=== PATIENT | female | born 1970 | race Caucasian/White ===

== ENCOUNTER 2019-12-17 23:58 | Emergency (ER) | payer OTHER ==
[2019-12-18] MEDS ORDERED: ONDANSETRON HCL INJ/PF 4 MG/2 ML SDV IV ONE (01:19)
[2019-12-18] MEDS ORDERED: NORMAL SALINE 1000 ML 1,000 ML IV ONE (01:19)
--- NOTE | 2019-12-18 01:24 | ER Document Report ---
ED General - General Chief Complaint: Passed Out Prior to Arrival Stated Complaint: ETOH/ALTERED MENTAL STATUS Time Seen by Provider: 12/18/19 01:07 Notes: Patient is a 49-year-old female that comes to the emergency department for chief complaint of alcohol intoxication. She states that she barely ate anything today, drank some wine, and became much more intoxicated than she expected. Patient states she is staying at a nearby hotel, hotel staff found her slumped over and became concerned and called EMS. EMS brought to the emergency depa rtment with no interventions. Patient denies hitting her head, falling, she denies any pain symptoms, she denies vomiting, she denies any other complaints other than becoming more intoxicated than she planned. She denies recreational drugs. She does have a history of factor V Leiden and is on Plavix as result but she again insists that she had no fall, injury, and EMS did not report any fall or injury. TRAVEL OUTSIDE OF THE [place] IN LAST 30 DAYS: No - Related Data Allergies/Adverse Reactions: NSAIDS (Non-Steroidal Anti-Inflamma Allergy (Verified 12/18/19 00:17) Past Medical History - General Information source: Patient - Social History Smoking Status: Never Smoker Frequency of alcohol use: Social Drug Abuse: None Lives with: Alone Family History: Reviewed & Not Pertinent Patient has suicidal ideation: No Patient has homicidal ideation: No - Past Medical History Cardiac Medical History: Reports: Other - Factor V Leiden on Plavix - Immunizations Immunizations up to date: Yes Hx Diphtheria, Pertussis, Tetanus Vaccination: Yes Review of Systems - Review of Systems Constitutional: See HPI EENT: No symptoms reported Cardiovascular: No symptoms reported Respiratory: No symptoms reported Gastrointestinal: No symptoms reported Genitourinary: No symptoms reported Female Genitourinary: No symptoms reported Musculoskeletal: No symptoms reported Skin: No symptoms reported Hematologic/Lymphatic: No symptoms reported Neurological/Psychological: See HPI Physical Exam - Vital signs Vitals: Temp Pulse Resp BP Pulse Ox 98.6 F 86 16 118/72 100 12/18/19 00:22 12/18/19 00:22 12/18/19 00:22 12/18/19 00:22 12/18/19 00:22 - Notes Notes: GENERAL: Alert, friendly, slight slurring of words, expansive mood, appears somewhat intoxicated HEAD: Normocephalic, atraumatic. EYES: Pupils equal, round, and reactive to light. Extraocular movements intact. ENT: Oral mucosa moist, tongue midline. Oropharynx unremarkable. Airway patent. N LUNGS: Clear to auscultation bilaterally, no wheezes, rales, or rhonchi. No respiratory distress. No signs of trauma. HEART: Regular rate and rhythm. No murmur ABDOMEN: Soft, non-tender. Non-distended. No signs of trauma. GENITOURINARY: Deferred EXTREMITIES: Moves all 4 extremities spontaneously. No edema, normal radial and dorsalis pedis pulses bilaterally. No cyanosis. BACK: no cervical, thoracic, lumbar midline tenderness. No saddle anesthesia, normal distal neurovascular exam. Moves all extremities in full range of motion. NEUROLOGICAL: Alert and oriented to person and place but not to all events. Occasional mild slurring of speech. Cranial nerves II through XII grossly intact. PSYCH: Friendly and expansive mood SKIN: Warm, dry, normal turgor. No rashes or lesions noted. Course - Re-evaluation Re-evalutation: Patient does appear intoxicated but is cooperative, friendly, and in no distress. Her evaluation is otherwise unremarkable. Her vital signs are unremarkable. There is no sign of trauma and no reported trauma. Patient will be provided with IV fluids, Zofran, she will be allowed to sleep and she will be monitored. After she is clinically improved and sober patient will be discharge d back to her hotel. Patient states understanding and agreement with plan. 12/18/19 On evaluation patient sleeping, has no respiratory depression, unremarkable. She will be allowed to sleep and will be discharged in the morning. Patient awake, alert, ambulates without difficulty, is not slurring her words, has no current symptoms, no current complaints. Patient is clinically sober. Patient will be obtaining a cab to go back to her hotel (this will be called for her). Patient discharged with return precautions, she states understanding and agreement. - Vital Signs Vital signs: Temp Pulse Resp BP Pulse Ox 98.1 F 82 14 98/50 L 95 12/18/19 05:14 12/18/19 05:14 12/18/19 05:14 12/18/19 05:14 12/18/19 05:14 - Laboratory Result Diagrams: 12/18/19 01:45 Laboratory results interpreted by me: 12/18/19 01:45 Sodium 146.3 H Chloride 110 H Creatinine 0.51 L Discharge - Discharge Clinical Impression: Alcohol use Lack of food as cause of insufficient nourishment Qualifiers: Encounter type: initial encounter Qualified Code(s): X58.XXXA - Exposure to other specified factors, initial encounter Condition: Stable Disposition: HOME, SELF-CARE Additional Instructions: Your symptoms tonight were most likely from your lack of nourishment along with use of alcohol. Improve your nourishment. Follow-up with primary care for additional evaluation and management. Drink plenty of fluids and rest for recovery. Return if you worsen including vomiting, passing out, chest pain, difficulty breathing, or any other concerning symptoms. Forms: Return to Work
[2019-12-18 02:17] LABS: ANION GAP 9 (5-19); BLOOD UREA NITROGEN 8 mg/dL (7-20); CALCIUM 8.9 mg/dL (8.4-10.2); CARBON DIOXIDE 27 mmol/L (22-30); CHLORIDE 110 mmol/L (98-107); GLUCOSE 80 mg/dL (75-110); POTASSIUM 4.4 mmol/L (3.6-5.0)
[2019-12-18 05:16] VITALS: BP 98/50
--- NOTE | 2019-12-18 17:22 | EKG REPORT ---
SEVERITY:- NORMAL ECG - SINUS RHYTHM : Confirmed by: Linda Kirk 18-Dec-2019 17:21:41
== END 2019-12-18 05:17 | disposition home or self-care (01) ==
LOC: ER 23:58
DX: F10.129 Alcohol abuse with intoxication, unspecified (principal); T73.0XXA Starvation, initial encounter; X58.XXXA Exposure to other specified factors, initial encounter; D68.51 Activated protein C resistance; Z79.02 Long term (current) use of antithrombotics/antiplatelets; Z88.8 Allergy status to other drugs, medicaments and biological substances
CPT/HCPCS: 93005; 99284; 96361; 96374; 36415; 80048; 93010; J2405; J7030